=== PATIENT | female | born 1930 | race Caucasian/White ===

== ENCOUNTER 2019-02-13 13:30 | Inpatient (IN) | payer MEDICARE ==
[2019-02-13 13:47] VITALS: BMI 28.8
[2019-02-13] MEDS ORDERED: Loperamide HCl 2 MG CAP PO PRN (16:30)
[2019-02-13] MEDS ORDERED: Ventolin HFA Inhaler 60 PUFF INHALER INH PRN (16:30)
[2019-02-13] MEDS: Acetaminophen/Codeine 30-300mg Tablet PO PRN ×2 (17:24→21:40)
--- NOTE | 2019-02-13 18:14 | HP ---
HISTORY OF PRESENT ILLNESS: Ms. Borja is a very pleasant 88-year-old white female, the patient of Dr. Alvarez, who had a total left knee arthroplasty done. Postoperatively, she did very well, but did some physical therapy and occupational therapy and did not qualify for rehab. She was transferred to [facility] for PT and OT. PAST MEDICAL HISTORY: Significant for: 1. Hypertension. 2. Coronary artery disease. 3. Hypothyroidism. 4. Gastroesophageal reflux. 5. History of lung cancer. 6. Mild aortic stenosis with ejection fraction 60% to 65%. 7. 1/3 diastolic dysfunction. 8. Lumbar stenosis, followed by Dr. Jordan. PAST SURGICAL HISTORY: 1. Bilateral knee surgery, which mainly meniscus surgery. 2. Hammertoe surgery. 3. Right carpal tunnel release. 4. Decompressive laminectomy, fasciotomies, foraminotomies, and microdiskectomy done by Dr. Jordan in 2016. FAMILY HISTORY: Reveals the patient's mom at age 75 with coronary artery disease and Parkinson's. The patient's father in his 70s. He had COPD and prostate cancer. The patient has three sisters, one of lung cancer. The patient has two brothers, one had brain cancer and another had COPD. The patient has three children, one of some type of cancer. PRESENT MEDICATIONS: Reveal she is on the followin. Tylenol with Codeine No. 3 q.4 p.r.n. 2. Amlodipine 5 mg daily. 3. Aspirin 81 mg daily. 4. Edarbi 40 mg every morning. 5. Vitamin D3 2000 units daily. 6. Celexa 20 mg daily. 7. CoQ10, 10 mg daily. 8. Vitamin B12 1000 mcg daily. 9. Bentyl 10 mg p.o. daily p.r.n. 10. [place] 10/325 one q.4 hours p.r.n. severe pain. 11. Levothyroxine 125 mcg daily. 12. Omeprazole 40 mg q.a.m. 13. Imodium 2 mg p.r.n. 14. Livalo 1 mg p.o. q.h.s. 15. Ventolin inhaler two puffs inhaled q.6 hours p.r.n. ALLERGIES: THE PATIENT IS NOTED TO BE ALLERGIC TO TRAMADOL, FLAGYL, ALL MILK PRODUCTS, BACITRACIN, LACTASE, NEOMYCIN, POLYMYXIN B, KEFLEX (CEPHALEXIN MONOHYDRATE). REVIEW OF SYSTEMS: CONSTITUTIONAL: Reveals the patient denies fever, chills, or night sweats. HEENT: The patient denies any change in her hearing or her vision. CARDIAC: The patient denies any chest pain, racing or skipping heartbeats, or slow heartbeats. RESPIRATORY: The patient denies any cough, cold, congestion, or wheezing. GI: The patient denies any abdominal problems including nausea, vomiting, diarrhea, constipation, or hemorrhoids. : The patient denies any dysuria, hematuria, frequency, urgency, or pyuria. BACK: The patient does complain of some back pain, but that has been a long ongoing issues, followed by Dr. Jordan for that problem. She has had back surgery in the past for that. EXTREMITIES: The patient complains of left knee pain, status post her surgery, but is much improved. PHYSICAL EXAMINATION: VITAL SIGNS: Reveal blood pressure elevated on admission at 174/77, pulse 74, respirations 18, O2 saturation 95% on room air, T-max 98 degrees. GENERAL: This is a well-developed, well-nourished, slightly obese, white female, in no apparent distress at this time. HEENT: Reveals normocephalic and nontraumatic cranium. Pupils are equally round and reactive. Extraocular movements are intact. Nose and throat are slightly dry. NECK: Supple without masses, nodes, or bruits. CHEST: Clear to auscultation. No rales, no rhonchi, no wheezes are heard. HEART: Reveals a regular rate and rhythm without murmurs, gallops, or rubs. The patient does have a 1 to 2/6 systolic ejection murmur. ABDOMEN: Soft, nontender without organomegaly. Normal bowel sounds are noted in all 4 quadrants. No rebound or guarding is noted. : Deferred. EXTREMITIES: Reveal no clubbing or cyanosis with slight edema in the left lower extremity. She does have a bandage over her left knee, which does not show a lot of drainage. The knee is not significantly swollen, red, or warm. ASSESSMENT: 1. Status post total left knee arthroplasty. 2. Hypertension. 3. Coronary artery disease. 4. History of chronic obstructive pulmonary disease. 5. Hypothyroidism. 6. Hyperlipidemia. 7. Gastroesophageal reflux disease. 8. Osteoarthritis. 9. Severe lumbar stenosis with radiculopathy, post multiple surgical interventions by Dr. Jordan. 10. History of lung cancer. 11. Aortic stenosis. 12. 1/3 diastolic dysfunction. 13. Generalized weakness. 14. Pain management. PLAN: 1. The patient is admitted to [facility] for physical therapy and occupational therapy. 2. We will continue her present medications. 3. Continue to monitor the patient's blood pressure closely, adjust medications as needed. 4. We will continue to monitor the patient's electrolytes. 5. Pain management is already indicated. 6. Monitor the patient for signs and symptoms of congestive heart failure. 7. Monitor the patient for stress ulcer. 8. Decubitus precautions. 9. DVT prophylaxis. 10. Physical therapy and occupational therapy. Job ID: [id number]
[2019-02-13] MEDS: Aspirin Chewable 81 MG TAB PO SCH (20:24)
[2019-02-13] MEDS: Simvastatin 10 MG TAB PO SCH (20:24)
[2019-02-13] MEDS: Citalopram 20 MG TAB PO SCH (20:24)
[2019-02-13] MEDS ORDERED: Amlodipine 5 MG TAB PO SCH (21:00)
[2019-02-14] MEDS: Acetaminophen/Codeine 30-300mg Tablet PO PRN ×5 (04:21→20:40)
[2019-02-14] MEDS: Levothyroxine Sodium 125 MCG TAB PO SCH (04:23)
[2019-02-14 05:44] LABS: #Basophils 0.1 thou/uL (0.0-0.2); #Eosinphils 0.2 thou/uL (0.0-0.7); #Lymphocytes 2.2 thou/uL (1.20-3.40); #Monocytes 0.6 thou/uL (0.11-0.59); #Neutrophils 6.3 thou/uL (1.40-6.50); %Basophils 1.2 % (0.0-1.0); %Eosinophils 2.3 % (0.0-10.0); %Lymphocytes 23.7 % (21.0-51.0); %Monocytes 5.8 % (0.0-10.0); %Neutrophils 67.1 % (42.0-75.0); Hemoglobin 9.7 g/dL (12.0-16.0); Mean Corpuscular HGB CONC 31.6 g/dL (32.0-36.0); Mean Corpuscular Hemoglobin 31.2 pg (27.0-31.0); Mean Corpuscular Volume 98.6 fL (78.0-98.0); Mean Platelet Volume 6.6 fL (7.4-10.4); Platelet Count 381 thou/uL (130-400); RBC Distribution Width 12.9 % (11.5-14.5); White Blood Cell (WBC) Count 9.4 thou/uL (4.8-10.8)
[2019-02-14 05:55] LABS: ALT (SGPT) 18 U/L (8-55); AST (SGOT) 15 U/L (5-34); Albumin 3.3 g/dL (3.4-4.8); Alkaline Phosphatase 78 U/L (40-150); Anion Gap 13 mmol/L (10-20); BUN (Urea Nitrogen) 11 mg/dL (9.8-20.1); Bilirubin, Total 0.6 mg/dL (0.2-1.2); Calc. Creatinine Clearance 77 mL/min (70-130); Calcium 10.2 mg/dL (7.8-10.44); Carbon Dioxide 29 mmol/L (23-31); Chloride 100 mmol/L (98-107); Estimated GFR-MDRD 86; Globulin 2.4 g/dL (2.4-3.5); Glucose 125 mg/dL (83-110); Potassium 4.9 mmol/L (3.5-5.1); Protein, Total 5.7 g/dL (6.0-8.3); Sodium 137 mmol/L (136-145)
[2019-02-14] MEDS: Losartan 25 MG TAB PO SCH (08:28)
[2019-02-14] MEDS: Ubidecarenone 50 MG CAP PO SCH (08:28)
[2019-02-14] MEDS: Cyanocobalamin (Vitamin B-12) 1,000 MCG TAB PO SCH (08:32)
[2019-02-14 09:06] LABS: Bilirubin Negative (Negative); Blood, Urine Negative (Negative); Clarity Clear (Clear); Glucose, Urine (Dipstick) Negative (Negative); Leukocyte Trace (Negative); Nitrite Negative (Negative); Protein, Urine (Dipstick) Negative (Neg-Trace); Urobilinogen 0.2 mg/dL (Less than 2)
[2019-02-14 09:10] LABS: RBC/HPF None Seen HPF (0-3); WBC/HPF 0-3 HPF (0-3)
[2019-02-14 09:11] LABS: Bacteria/HPF Rare-Few HPF (None Seen); Squamous Epithelial 0-3 HPF (0-3)
--- NOTE | 2019-02-14 10:23 | PRG ---
DATE OF SERVICE: 02/14/2019 SUBJECTIVE: Ms. Borja is a very pleasant 88-year-old white female, who had an elective total left knee arthroplasty done. Postoperatively, she did well, but was very weak and she was transferred here for PT and OT. The patient states she is doing well and ate a good breakfast and walked already this morning with therapy and yesterday evening. She is very pleased with her therapy so far and getting little stronger. She has some pain, but is well controlled. OBJECTIVE: VITAL SIGNS: This morning reveal blood pressure slightly elevated at 184/78, last night was 165/72; pulse 74 to 78; respirations 18 to 20; O2 saturation 94% to 97% on room air; T-max 98.5. GENERAL: This is a well-developed, well-nourished, very pleasant, slightly obese white female, in no apparent distress at this time. HEENT: Normocephalic, nontraumatic cranium. Pupils are equal, round, reactive. Extraocular movements are intact. Nose and throat are slightly dry. NECK: Supple without masses, nodes, or bruits. CHEST: Clear to auscultation. No rales, no rhonchi, no wheezes are heard. HEART: Regular rate and rhythm without gallops or rubs. She does have a 2/6 systolic ejection murmur most likely aortic stenosis. She does have a history of moderate aortic stenosis, ejection fraction 60%, and 1/3 diastolic dysfunction. RESPIRATORY: The patient denies cough, cold, congestion. ABDOMEN: Soft, nontender without organomegaly. Normal bowel sounds are noted in all 4 quadrants. No rebound or guarding is noted. : Deferred. EXTREMITIES: No clubbing or cyanosis. The patient does have a bandage over left knee and does not show any significant drainage. The patient is not red, warm, or hot. ASSESSMENT: 1. Status post total left knee arthroplasty. 2. Hypertension. 3. Coronary artery disease. 4. Chronic obstructive pulmonary disease. 5. Hypothyroidism. 6. Hyperlipidemia. 7. Gastroesophageal reflux disease. 8. Osteoarthritis. 9. Severe lumbar stenosis with radiculopathy, status post multiple surgical interventions in the distant past by Dr. Jordan. 10. History of lung cancer. 11. Aortic stenosis. 12. 1/3 diastolic dysfunction. 13. Generalized weakness. 14. Pain management. PLAN: 1. Continue present medications. 2. Encourage the patient to eat and drink well. 3. Monitor the patient's blood pressure closely and adjust medications as needed. 4. Continue to monitor the patient's electrolytes. 5. Pain management as indicated. 6. Monitor the patient for signs and symptoms of congestive heart failure. 7. Monitor the patient for stress ulcer. 8. Decubitus precautions. 9. DVT prophylaxis. 10. Physical therapy and occupational therapy. The patient's labs from yesterday certainly all acceptable, and a urinalysis was unremarkable. Job ID: [id number]
[2019-02-14] MEDS: Amlodipine 5 MG TAB PO SCH (20:40)
[2019-02-14] MEDS: Aspirin Chewable 81 MG TAB PO SCH (20:40)
[2019-02-14] MEDS: Citalopram 20 MG TAB PO SCH (20:40)
[2019-02-14] MEDS: Simvastatin 10 MG TAB PO SCH (20:40)
[2019-02-15] MEDS: Levothyroxine Sodium 125 MCG TAB PO SCH (03:58)
[2019-02-15] MEDS: Acetaminophen/Codeine 30-300mg Tablet PO PRN ×2 (03:58→20:24)
[2019-02-15] MEDS: Losartan 25 MG TAB PO SCH (08:38)
[2019-02-15] MEDS: Cyanocobalamin (Vitamin B-12) 1,000 MCG TAB PO SCH (08:39)
[2019-02-15] MEDS: Ubidecarenone 50 MG CAP PO SCH (08:39)
[2019-02-15] MEDS: HYDROcodone/Acetaminophen 10/325 mg Tablet PO PRN ×2 (08:42→17:50)
--- NOTE | 2019-02-15 14:47 | PRG ---
DATE OF SERVICE: 02/15/2019 SUBJECTIVE: Ms. Borja is an 88-year-old white female, who had an elective total left knee arthroplasty done by Dr. Alvarez. Postoperatively, she did well. Post week, she was transferred to [facility] for PT and OT. The patient states she is doing well and had a good breakfast and walk this morning. She is very pleased with therapy so far. She walked 180 feet yesterday. She walked 200 feet today with rest. She is still somewhat weakened, but her major problem is getting up out of bed and/or out of a chair. She has no complaints today. OBJECTIVE: VITAL SIGNS: Reveal blood pressure this morning was 131/62, pulse 74 to 78, respirations 20, O2 saturation 96% on room air, and T-max 98.3. GENERAL: On physical exam, this is a well-developed, well-nourished, slightly obese white female, in no apparent distress at this time. HEENT: Reveals normocephalic and nontraumatic cranium. Pupils are equal, round, and reactive. Extraocular movements are intact. Nose and throat are moist. NECK: Supple without masses, nodes, or bruits. CHEST: Clear to auscultation. No rales, rhonchi, wheezes, or cough is heard. HEART: Reveals a regular rate and rhythm without murmurs, gallops, or rubs. Heart also reveals a 2/6 systolic ejection murmur from her aortic stenosis. She does have a history of moderate aortic stenosis, and ejection fraction 60%. She also has a 1/3 diastolic dysfunction. ABDOMEN: Soft and nontender without organomegaly. Normal bowel sounds are noted in all 4 quadrants. No rebound or guarding is noted. : Deferred. EXTREMITIES: Reveal no clubbing, cyanosis, or edema. The patient does have bandage over her left knee, slightly red to the lateral portion, but does not seem very warm or hot. No drainage is noted in the dressing. ASSESSMENT: 1. Status post total left knee arthroplasty by Dr. Alvarez. 2. Hypertension. 3. Coronary artery disease. 4. Chronic obstructive pulmonary disease. 5. Hypothyroidism. 6. Hyperlipidemia. 7. Gastroesophageal reflux disease. 8. Osteoarthritis. 9. Severe lumbar stenosis with radiculopathy, status post multiple surgeries, surgical interventions in the distant past by Dr. Jordan. 10. History of lung cancer. 11. Aortic stenosis. 12. 1/3 diastolic dysfunction. 13. Generalized weakness. 14. Pain management. PLAN: 1. Continue present medications. 2. Continue to encourage the patient to eat and drink well. 3. Monitor the patient's blood pressure closely. 4. We did adjust her amlodipine from 5 mg to 10 mg yesterday. 5. Monitor the patient's electrolytes. 6. Pain management. 7. Monitor the patient for signs and symptoms of congestive heart failure. 8. Monitor the patient for stress ulcer. 9. Decubitus precautions. 10. DVT prophylaxis. 11. PT and OT. Job ID: [id number]
[2019-02-15] MEDS: Aspirin Chewable 81 MG TAB PO SCH (20:23)
[2019-02-15] MEDS: Amlodipine 5 MG TAB PO SCH (20:23)
[2019-02-15] MEDS: Citalopram 20 MG TAB PO SCH (20:24)
[2019-02-15] MEDS: Simvastatin 10 MG TAB PO SCH (20:24)
[2019-02-16] MEDS: Acetaminophen/Codeine 30-300mg Tablet PO PRN ×5 (01:37→20:39)
[2019-02-16] MEDS: Levothyroxine Sodium 125 MCG TAB PO SCH (05:52)
[2019-02-16] MEDS: Losartan 25 MG TAB PO SCH (08:30)
[2019-02-16] MEDS: Cyanocobalamin (Vitamin B-12) 1,000 MCG TAB PO SCH (08:30)
[2019-02-16] MEDS: Ubidecarenone 50 MG CAP PO SCH (08:31)
[2019-02-16] MEDS: Polyethylene Glycol 3350 17 GM Packet PO SCH (08:31)
[2019-02-16] MEDS: Simvastatin 10 MG TAB PO SCH (20:35)
[2019-02-16] MEDS: Citalopram 20 MG TAB PO SCH (20:35)
[2019-02-16] MEDS: Aspirin Chewable 81 MG TAB PO SCH (20:35)
[2019-02-16] MEDS: Amlodipine 5 MG TAB PO SCH (20:36)
[2019-02-16] MEDS: Dicyclomine 20 MG TAB PO PRN (21:25)
[2019-02-17] MEDS: Levothyroxine Sodium 125 MCG TAB PO SCH (05:30)
[2019-02-17] MEDS: Dicyclomine 20 MG TAB PO PRN (07:34)
[2019-02-17] MEDS: Acetaminophen/Codeine 30-300mg Tablet PO PRN ×3 (07:35→20:42)
[2019-02-17] MEDS: Losartan 25 MG TAB PO SCH (09:05)
[2019-02-17] MEDS: Polyethylene Glycol 3350 17 GM Packet PO SCH (09:05)
[2019-02-17] MEDS: Ubidecarenone 50 MG CAP PO SCH (09:05)
[2019-02-17] MEDS: Cyanocobalamin (Vitamin B-12) 1,000 MCG TAB PO SCH (09:05)
[2019-02-17] MEDS: Amlodipine 5 MG TAB PO SCH (20:39)
[2019-02-17] MEDS: Citalopram 20 MG TAB PO SCH (20:40)
[2019-02-17] MEDS: Simvastatin 10 MG TAB PO SCH (20:40)
[2019-02-17] MEDS: Aspirin Chewable 81 MG TAB PO SCH (20:40)
--- NOTE | 2019-02-17 21:36 | PRG ---
DATE OF SERVICE: 02/16/2019 SUBJECTIVE: The patient feels well, lying in the bed, has been walking with the nurses. She is having decreasing pain in her knee except when therapy is done. OBJECTIVE: VITAL SIGNS: Shows her pulse 83, blood pressure 157/67, O2 sats 95% on room air, respirations 18. EXTREMITIES: Left knee is bandaged. No redness, erythema, or drainage. ABDOMEN: Soft and nontender. CARDIAC: Shows an irregularly irregular rhythm. ASSESSMENT: 1. Resolving left total knee replacement. 2. Hypertension, controlled to goal. 3. Coronary disease, asymptomatic. 4. Chronic obstructive pulmonary disease, stable. 5. Aortic stenosis, stable. 6. Hypothyroidism stable. 7. Lumbar stenosis with radiculopathy, not limiting therapy. PLAN: 1. Continue PT/OT. 2. Continue pain relief. 3. Continue DVT and stress ulcer prophylaxis. 4. Continue to monitor for decompensation of congestive heart failure. 5. Continue to monitor for signs of aortic stenosis with chest pain, syncope, or shortness of breath. Job ID: [id number]
--- NOTE | 2019-02-17 21:44 | PRG ---
DATE OF SERVICE: 02/17/2019 SUBJECTIVE: The patient feels better today. Has been walking in the porter with nurses and states their walking is much better for her than doing the PT. She has had no shortness of breath or chest pain. Has been eating well with no nausea. OBJECTIVE: VITAL SIGNS: Show blood pressure 186/74, temperature is 98, pulse 77, respirations 20, O2 sats 95% on room air. LUNGS: Clear. CARDIAC: Shows irregularly regular rhythm. ABDOMEN: Soft and nontender with no masses or organomegaly. SKIN/EXTREMITIES: Display no edema, clubbing, or cyanosis. There is bandage in the left knee, appears to be healing with no erythema or warmth or drainage. NEUROLOGIC: Intact. ASSESSMENT: 1. Resolving left total knee replacement. 2. Stable aortic stenosis. 3. Hypertension, slightly elevated secondary to pain. We will monitor. May need to adjust medications. 4. Coronary artery disease, asymptomatic. 5. Lumbar stenosis with radiculopathy, possibly limiting therapy. PLAN: 1. Continue PT/OT. 2. Continue pain relief. 3. Continue DVT and stress ulcer prophylaxis. 4. Continue to monitor for signs of congestive heart failure. 5. Continue to monitor blood pressure. Her amlodipine just recently been increased to 10 mg, but may need to increase losartan to 100 daily and we will do this today. Job ID: [id number]
[2019-02-18] MEDS: Levothyroxine Sodium 125 MCG TAB PO SCH (05:36)
[2019-02-18] MEDS: Acetaminophen/Codeine 30-300mg Tablet PO PRN ×3 (09:38→18:05)
[2019-02-18] MEDS: Ubidecarenone 50 MG CAP PO SCH (09:38)
[2019-02-18] MEDS: Cyanocobalamin (Vitamin B-12) 1,000 MCG TAB PO SCH (09:38)
[2019-02-18] MEDS: Losartan 25 MG TAB PO SCH (09:40)
[2019-02-18] MEDS: Polyethylene Glycol 3350 17 GM Packet PO SCH (09:42)
[2019-02-18] MEDS: Simvastatin 10 MG TAB PO SCH (21:36)
[2019-02-18] MEDS: Citalopram 20 MG TAB PO SCH (21:36)
[2019-02-18] MEDS: Aspirin Chewable 81 MG TAB PO SCH (21:36)
[2019-02-18] MEDS: Amlodipine 5 MG TAB PO SCH (21:36)
--- NOTE | 2019-02-18 22:03 | PRG ---
DATE OF SERVICE: 02/18/2019 SUBJECTIVE: Ms. Borja is a very pleasant 88-year-old white female ended up with elective total left knee arthroplasty done by Dr. Alvarez. Postoperatively, she did well but was very weak. She was transferred to [facility] for physical therapy and occupational therapy. The patient states she had a good weekend and was able to walk with the nurses. She is far too doing much stronger since states she wants to go home. I think she is able to care for herself little better. The patient walked 200 feet last week and hopefully, she will walk as much as long. OBJECTIVE: VITAL SIGNS: This morning reveal blood pressure 136/65, pulse 72 to 79, respirations 18, O2 saturation 95% to 97% on room air, and T-max 98.2. GENERAL: This is a well-developed, well-nourished, very pleasant, 88-year-old white female, in no apparent distress at this time. HEENT: Reveals normocephalic and nontraumatic cranium. Pupils are equal, round , and reactive. Extraocular movements are intact. Nose and throat are dry. NECK: Supple without masses, nodes, or bruits. CHEST: Clear to auscultation. No rales, no rhonchi, no wheezes. No cough is heard. HEART: Reveals a regular rate and rhythm. No gallops or rubs are noted. Heart reveals a 2/6 systolic ejection murmur from her aortic stenosis. She does have a history of mild to moderate aortic stenosis. Ejection fraction noted to be 60%. She had a 1/3 diastolic dysfunction noted. ABDOMEN: Soft, nontender without organomegaly. Normal bowel sounds are noted. No rebound or guarding is noted. GENITOURINARY: Deferred. EXTREMITIES: Reveal no clubbing, cyanosis, or edema. The patient does have a bandage over her left knee still. Does not seem warm or draining. ASSESSMENT: 1. Status post total left knee arthroplasty done by Dr. Alvarez. 2. Hypertension. 3. Coronary artery disease. 4. Chronic obstructive pulmonary disease. 5. Hypothyroidism. 6. Hyperlipidemia. 7. Gastroesophageal reflux disease. 8. Osteoarthritis. 9. Severe lumbar stenosis with radiculopathy. 10. Status post multiple surgeries. 11. History of lung cancer. 12. Aortic stenosis. 13. 1/3 diastolic dysfunction. 14. Generalized weakness. 15. Pain management. PLAN: 1. Continue present medications. 2. Encourage the patient to eat well. 3. Continue to monitor the patient's blood pressure closely. 4. The patient's blood pressure medicine, amlodipine is increased from 5 mg to 10 mg. 5. The patient's BP will be monitored to see if this brings it to normal.. 6. Continue to follow the patient's electrolytes. 7. Pain management. 8. Monitor the patient for signs and symptoms of congestive heart failure. 9. Monitor the patient for stress ulcer. 10. Decubitus precautions. 11. DVT prophylaxis. 12. Physical therapy and occupational therapy. Job ID: [id number] [facility]
[2019-02-19] MEDS: Acetaminophen/Codeine 30-300mg Tablet PO PRN ×4 (00:03→20:40)
[2019-02-19] MEDS: Levothyroxine Sodium 125 MCG TAB PO SCH (05:09)
[2019-02-19] MEDS: Cyanocobalamin (Vitamin B-12) 1,000 MCG TAB PO SCH (08:57)
[2019-02-19] MEDS: Ubidecarenone 50 MG CAP PO SCH (08:57)
[2019-02-19] MEDS: Losartan 25 MG TAB PO SCH (08:58)
[2019-02-19] MEDS: Polyethylene Glycol 3350 17 GM Packet PO SCH (09:00)
[2019-02-19] MEDS: Citalopram 20 MG TAB PO SCH (20:40)
[2019-02-19] MEDS: Simvastatin 10 MG TAB PO SCH (20:40)
[2019-02-19] MEDS: Amlodipine 5 MG TAB PO SCH (20:40)
[2019-02-19] MEDS: Aspirin Chewable 81 MG TAB PO SCH (20:40)
--- NOTE | 2019-02-19 20:48 | PRG ---
DATE OF SERVICE: 02/19/2019 SUBJECTIVE: Ms. Borja is a very pleasant 88-year-old white female, who had an elective total knee arthroplasty done by Dr. Alvarez. Postoperatively, she tolerated the procedure very well, but was very weak. [place] [facility] [place]. The patient states she has had a great day today, walked 500 feet this morning and 700 feet this afternoon. She states her knees are much improved. She still has a little balance problem and needs a little more time, but she is doing much better. We suggest that she will be discharged on Monday and she is aware of that. She will try to get her daughter to come pick her up on Monday. OBJECTIVE: VITAL SIGNS: Today reveal blood pressure 152/69, pulse 79 to 83, respirations 18, O2 saturation 95% to 96% on room air, T-max 98.6. GENERAL: This is a well-developed, well-nourished, slightly obese, white female, in no apparent distress at this time. HEENT: Reveals normocephalic, nontraumatic cranium. Pupils are equal, round, reactive. Extraocular movements are intact. Nose and throat are slightly dry. NECK: Supple without masses, nodes, or bruits. CHEST: Clear to auscultation. No rales, rhonchi, wheezes, or cough is heard. HEART: Reveals a regular rate and rhythm. The patient does have a 2/6 systolic ejection murmur from aortic stenosis. She has a history of moderate aortic stenosis, ejection fraction 60%. She has 1/3 diastolic dysfunction noted. ABDOMEN: Soft, nontender, slightly obese. Normal bowel sounds are noted. No rebound or guarding is noted. : Deferred. EXTREMITIES: Reveal no clubbing, cyanosis, or edema. Left knee has no drainage. ASSESSMENT: 1. Status post total left knee arthroplasty done by Dr. Alvarez. 2. Hypertension. 3. Coronary artery disease. 4. Chronic obstructive pulmonary disease. 5. Hypothyroidism. 6. Hyperlipidemia. 7. Gastroesophageal reflux disease. 8. Osteoarthritis. 9. Severe lumbar stenosis with radiculopathy. 10. Status post multiple surgeries. 11. History of lung cancer. 12. Aortic stenosis. 13. 1/3 diastolic dysfunction. 14. Pain management. 15. Generalized weakness. PLAN: 1. Continue present medications. 2. Continue to monitor the patient's blood pressure closely. 3. The patient is on amlodipine 10 mg. 4. Continue to follow the patient's electrolytes. 5. Pain management. 6. Monitor the patient for signs and symptoms of CHF. 7. Monitor the patient for stress ulcer. 8. Decubitus precautions. 9. DVT prophylaxis. 10. Physical therapy and occupational therapy. Job ID: [id number]
[2019-02-20] MEDS: Levothyroxine Sodium 125 MCG TAB PO SCH (05:50)
[2019-02-20] MEDS: Losartan 25 MG TAB PO SCH (08:24)
[2019-02-20] MEDS: Cyanocobalamin (Vitamin B-12) 1,000 MCG TAB PO SCH (08:24)
[2019-02-20] MEDS: Ubidecarenone 50 MG CAP PO SCH (08:25)
[2019-02-20] MEDS: Polyethylene Glycol 3350 17 GM Packet PO SCH ×2 (08:25→08:35)
[2019-02-20] MEDS: Acetaminophen/Codeine 30-300mg Tablet PO PRN ×3 (08:26→20:41)
--- NOTE | 2019-02-20 13:53 | PRG ---
DATE OF SERVICE: 02/20/2019 SUBJECTIVE: Ms. Borja is a pleasant 88-year-old white female. She had a total elective knee arthroplasty done by Dr. Alvarez on the right side. Postoperatively, she tolerated the procedure well, had no significant bleeding or infection, but was very weak. She was transferred to [facility] for PT and OT to increase her strength and stamina. The patient states she had a great day. She is so glad that she is doing so well. She anticipates going home on Monday when her daughter will pick her up. OBJECTIVE: VITAL SIGNS: Today reveal blood pressure 154/70, pulse 74 to 83, respirations 18, T-max 98.1, O2 saturation 94% to 95% on room air. GENERAL: This is a well-developed, well-nourished, slightly obese white female, in no apparent distress at this time. HEENT: Normocephalic and nontraumatic cranium. Pupils are equal, round, and reactive. Extraocular movements are intact. Nose and throat are moist today. NECK: Supple without masses, nodes, or bruits. CHEST: Clear to auscultation. No rales, no rhonchi. No wheezes or cough is heard. HEART: Reveals a regular rate and rhythm without gallops or rubs. The patient does have a 2/6 systolic ejection murmur most likely from aortic stenosis. She also has a history of moderate aortic stenosis, ejection fraction 60%. She has 1/3 diastolic dysfunction and is stable. ABDOMEN: Soft, nontender without organomegaly. Normal bowel sounds are noted in all 4 quadrants. GENITOURINARY: Deferred. EXTREMITIES: Reveal no clubbing or cyanosis. The patient has minimal edema in her left leg. ASSESSMENT: 1. Status post total left knee arthroplasty done by Dr. Alvarez. 2. Hypertension. 3. Coronary artery disease. 4. Chronic obstructive pulmonary disease. 5. Hypothyroidism. 6. Hyperlipidemia. 7. Gastroesophageal reflux disease. 8. Osteoarthritis. 9. Severe lumbar stenosis with radiculopathy. 10. Status post multiple surgeries. 11. History of lung cancer. 12. Aortic stenosis. 13. 1/3 diastolic dysfunction. 14. Pain management. 15. Generalized weakness. PLAN: 1. Continue present medications. 2. Continue to monitor the patient's blood pressure closely. 3. Continue the patient on . 4. Continue to follow the patient's electrolytes. 5. Pain management. 6. Monitor the patient for signs and symptoms of CHF. 7. Monitor the patient for stress ulcer. 8. Decubitus precautions. 9. DVT prophylaxis. 10. Physical therapy and occupational therapy. Job ID: [id number]
[2019-02-20] MEDS: Amlodipine 5 MG TAB PO SCH (20:40)
[2019-02-20] MEDS: Aspirin Chewable 81 MG TAB PO SCH (20:41)
[2019-02-20] MEDS: Citalopram 20 MG TAB PO SCH (20:41)
[2019-02-20] MEDS: Simvastatin 10 MG TAB PO SCH (20:41)
[2019-02-21] MEDS: Levothyroxine Sodium 125 MCG TAB PO SCH (05:38)
[2019-02-21 05:49] LABS: #Basophils 0.1 thou/uL (0.0-0.2); #Eosinphils 0.2 thou/uL (0.0-0.7); #Lymphocytes 2.2 thou/uL (1.20-3.40); #Monocytes 0.5 thou/uL (0.11-0.59); #Neutrophils 5.1 thou/uL (1.40-6.50); %Basophils 1.1 % (0.0-1.0); %Eosinophils 2.2 % (0.0-10.0); %Lymphocytes 26.9 % (21.0-51.0); %Monocytes 6.6 % (0.0-10.0); %Neutrophils 63.2 % (42.0-75.0); Hemoglobin 10.6 g/dL (12.0-16.0); Mean Corpuscular HGB CONC 31.2 g/dL (32.0-36.0); Mean Corpuscular Hemoglobin 30.9 pg (27.0-31.0); Mean Corpuscular Volume 99.1 fL (78.0-98.0); Mean Platelet Volume 6.9 fL (7.4-10.4); Platelet Count 430 thou/uL (130-400); RBC Distribution Width 13.3 % (11.5-14.5); Red Blood Cell (RBC) Count 3.42 mill/uL (4.20-5.40)
[2019-02-21 06:11] LABS: AST (SGOT) 12 U/L (5-34); Albumin 3.7 g/dL (3.4-4.8); Alkaline Phosphatase 78 U/L (40-150); Anion Gap 15 mmol/L (10-20); BUN (Urea Nitrogen) 17 mg/dL (9.8-20.1); Bilirubin, Total 0.4 mg/dL (0.2-1.2); Calc. Creatinine Clearance 68 mL/min (70-130); Calcium 10.4 mg/dL (7.8-10.44); Carbon Dioxide 27 mmol/L (23-31); Chloride 102 mmol/L (98-107); Estimated GFR-MDRD 75; Globulin 2.6 g/dL (2.4-3.5); Glucose 110 mg/dL (83-110); Potassium 4.6 mmol/L (3.5-5.1); Protein, Total 6.3 g/dL (6.0-8.3); Sodium 139 mmol/L (136-145)
[2019-02-21 06:19] LABS: ALT (SGPT) 8 U/L (8-55)
[2019-02-21] MEDS: Cyanocobalamin (Vitamin B-12) 1,000 MCG TAB PO SCH (08:49)
[2019-02-21] MEDS: Losartan Potassium 50 MG TAB PO SCH (08:49)
[2019-02-21] MEDS: Ubidecarenone 50 MG CAP PO SCH (08:50)
[2019-02-21] MEDS: Acetaminophen/Codeine 30-300mg Tablet PO PRN (08:50)
[2019-02-21] MEDS: Polyethylene Glycol 3350 17 GM Packet PO SCH (08:50)
--- NOTE | 2019-02-21 09:51 | PRG ---
DATE OF SERVICE: 02/21/2019 SUBJECTIVE: Ms. Borja is a very pleasant 88-year-old white female, who had an elective total right knee arthroplasty done by Dr. Alvarez. Postoperatively, she did very well, but was very weak. She was transferred to [facility] for PT and OT. She is here to increase her strength and stamina. The patient states she is doing well and is to be discharged tomorrow. She has no problems and we were trying to transfer her off the Tylenol No. 3 to regular Tylenol and/or Aleve. Her daughter will pick her up tomorrow. OBJECTIVE: VITAL SIGNS: Reveal blood pressure 131/65, pulse 73 to 74, respirations 18 to 20, O2 saturation 94% to 96% on room air, T-max 98.3. GENERAL: On physical exam, this is a well-developed, well-nourished, very pleasant 88-year-old white female, in no apparent distress at this time. HEENT: Normocephalic and nontraumatic cranium. Pupils equal, round, and reactive. Extraocular movements are intact. Nose and throat are slightly dry. NECK: Supple without masses, nodes, or bruits. CHEST: Clear to auscultation. No rales, rhonchi, wheezes, or cough is noted. HEART: Reveals a regular rate and rhythm without murmurs, gallops, or rubs. ABDOMEN: Soft and nontender without organomegaly. Normal bowel sounds are noted. No rebound or guarding is noted. : Deferred. EXTREMITIES: Reveal no clubbing, cyanosis, or edema. ASSESSMENT: 1. Status post total left knee arthroplasty done by Dr. Alvarez. 2. Hypertension. 3. Coronary artery disease. 4. Chronic obstructive pulmonary disease. 5. Hypothyroidism. 6. Hyperlipidemia. 7. Gastroesophageal reflux disease. 8. Osteoarthritis. 9. Severe lumbar stenosis with radiculopathy. 10. Status post multiple surgeries. 11. History of lung cancer. 12. Aortic stenosis. 13. 1/3 diastolic dysfunction. 14. Pain management. 15. Generalized weakness. PLAN: 1. Continue present medication. 2. Continue to monitor the patient's blood pressure closely. 3. Continue to monitor the patient's electrolytes. 4. The patient's labs this morning were all excellent. 5. Pain management. 6. Try to transfer the patient from Tylenol No. 3 to regular Tylenol 1000 mg t.i.d. 7. Monitor the patient for signs and symptoms of CHF. 8. Monitor the patient for stress ulcer. 9. Decubitus precautions. 10. DVT prophylaxis. 11. Physical therapy and occupational therapy. Job ID: [id number]
[2019-02-21] MEDS: Acetaminophen 500 MG TAB PO SCH ×2 (14:01→21:09)
[2019-02-21] MEDS: Amlodipine 5 MG TAB PO SCH (21:10)
[2019-02-21] MEDS: Aspirin Chewable 81 MG TAB PO SCH (21:10)
[2019-02-21] MEDS: Citalopram 20 MG TAB PO SCH (21:10)
[2019-02-21] MEDS: Simvastatin 10 MG TAB PO SCH (21:10)
[2019-02-22] MEDS: Levothyroxine Sodium 125 MCG TAB PO SCH (05:42)
[2019-02-22] MEDS: Polyethylene Glycol 3350 17 GM Packet PO SCH (09:06)
[2019-02-22] MEDS: Ubidecarenone 50 MG CAP PO SCH (09:06)
[2019-02-22] MEDS: Losartan Potassium 50 MG TAB PO SCH (09:06)
[2019-02-22] MEDS: Acetaminophen 500 MG TAB PO SCH (09:06)
[2019-02-22] MEDS: Cyanocobalamin (Vitamin B-12) 1,000 MCG TAB PO SCH (09:06)
--- NOTE | 2019-02-22 10:18 | DIS ---
DATE OF ADMISSION: 02/13/2019 DATE OF DISCHARGE: 02/22/2019 HISTORY OF PRESENT ILLNESS: Ms. Borja is a very pleasant 88-year-old white female who had a total left knee arthroplasty done by Dr. Alvarez. Postoperatively, she did well, but was very weak. She needed further rehab and was transferred to [facility] for physical therapy and occupational therapy. SUBJECTIVE: The patient states she is doing very well and walking much more and with much less pain than she thought she could. She is off all of her pain medicines at this time. She is using Tylenol 1000 mg up to 3 times a day for pain. OBJECTIVE: VITAL SIGNS: Reveal the patient's blood pressure fluctuates between 130s to 160s systolic and between the 60s and 70s diastolic. Her pulse usually runs in the 70s, respirations 18 to 20s, O2 sats 95% to 96% on room air, and T-max is in 98. GENERAL: This is a well-developed, well-nourished, very pleasant white female, has done extremely well while she has been here in physical therapy. HEENT: Normocephalic and nontraumatic cranium. The pupils are equally round and reactive. The extraocular movements are intact. Nose and throat are slightly dry, but clear. NECK: Supple without masses, nodes, or bruits. CHEST: Clear to auscultation. No rales, no rhonchi, no wheezes, and no cough is noted. HEART: Reveals a regular rate and rhythm. The patient does have a 2/6 systolic ejection murmur. ABDOMEN: Soft, slightly obese, and nontender. Normal bowel sounds are noted in all 4 quadrants. No rebound or guarding is noted. : Deferred. EXTREMITIES: Reveal no clubbing, cyanosis, or edema. The patient does have bandage over left knee, which does not show much drainage at all. The knee is not swollen, is not red, is not warm. NEUROLOGIC: The patient is oriented to person, place, and time. ASSESSMENT: 1. Status post total left knee arthroplasty by Dr. Alvarez. 2. Hypertension. 3. Coronary artery disease. 4. Chronic obstructive pulmonary disease. 5. Hypothyroidism. 6. Hyperlipidemia. 7. Gastroesophageal reflux disease. 8. Osteoarthritis. 9. History of severe lumbar stenosis with radiculopathy and multiple surgical interventions by Dr. Jordan. 10. History of lung cancer. 11. Aortic stenosis. 12. 1/3 diastolic dysfunction. 13. Pain management. 14. Generalized weakness. DISCHARGE MEDICATIONS: For this patient include the following; 1. Tylenol 1000 mg t.i.d. p.r.n. 2. Albuterol or Ventolin inhaler 2 puffs q.6 p.r.n. 3. Norvasc 10 mg a day. 4. Aspirin 81 mg a day. 5. Vitamin D3, 2000 units a day. 6. Citalopram 20 mg a day. 7. CoQ10, 100 mg daily. 8. Vitamin B12, 1000 mg p.o. daily. 9. Bentyl 10 mg p.r.n. abdominal cramps. 10. Levothyroxine 125 mcg daily. 11. Imodium p.r.n. 12. Losartan 200 mg daily. 13. Protonix 40 mg every day. 14. MiraLAX 17 g daily p.r.n. 15. Simvastatin 10 mg at bedtime. PLAN: 1. The patient is discharged to home from [facility] on February 22, after 2 o'clock. 2. Continue present medications. 3. Continue to monitor the patient's blood pressure at home. 4. The patient will have physical therapy coming by her house twice a week. 5. Pain management with Tylenol. 6. The patient is monitored for signs and symptoms of congestive heart failure. 7. Monitor the patient for stress ulcer. 8. Decubitus precautions. 9. Follow up with the patient's PCP within 1 or 2 weeks. Job ID: [id number]
[2019-02-22 12:19] VITALS: BP 132/63; TEMP 97.6
== END 2019-02-22 13:42 | disposition home health service (06) | DRG 561 ==
LOC: NAV ACUTE 13:30
PROVIDERS: ADMIT Family Medicine; ATTEND Family Medicine
DX: Z47.1 Aftercare following joint replacement surgery (principal); I10 Essential (primary) hypertension; I25.10 Atherosclerotic heart disease of native coronary artery without angina pectoris; E03.9 Hypothyroidism, unspecified; K21.9 Gastro-esophageal reflux disease without esophagitis; I35.0 Nonrheumatic aortic (valve) stenosis; M48.061 Spinal stenosis, lumbar region without neurogenic claudication; J44.9 Chronic obstructive pulmonary disease, unspecified; E78.5 Hyperlipidemia, unspecified; M54.16 Radiculopathy, lumbar region; Z85.118 Personal history of other malignant neoplasm of bronchus and lung; Z98.890 Other specified postprocedural states; Z79.82 Long term (current) use of aspirin; Z88.1 Allergy status to other antibiotic agents; Z88.8 Allergy status to other drugs, medicaments and biological substances
CPT/HCPCS: 36415; 80053; 81001; 85025

== ENCOUNTER 2021-05-04 15:07 | Inpatient (IN) | payer MEDICARE ==
[2021-05-04] MEDS ORDERED: guaiFENesin ER 600 MG TAB PO PRN (18:05)
[2021-05-04] MEDS ORDERED: Cepastat Lozenges 1 LOZ PO PRN (18:09)
[2021-05-04] MEDS ORDERED: Loperamide HCl 2 MG CAP PO PRN ×2 (18:09)
[2021-05-04] MEDS ORDERED: cloNIDine 0.1 MG TAB PO PRN (18:09)
[2021-05-04] MEDS ORDERED: Bisacodyl 10 MG SUPP PR PRN (18:09)
[2021-05-04] MEDS ORDERED: Artificial Tear Sol 15 ML BOT EA EYE PRN (18:09)
[2021-05-04] MEDS ORDERED: Sodium Chloride 0.65% Nasal 44 ML BOT EA NARE PRN (18:09)
[2021-05-04] MEDS ORDERED: Calcium Carbonate 500 MG ChewTAB PO PRN (18:09)
[2021-05-04] MEDS ORDERED: Eucerin (Mineral Oil/Petrolatum,White) 30 gm Jar TOP PRN (18:09)
[2021-05-04] MEDS ORDERED: Loratadine 10 MG TAB PO PRN (18:42)
[2021-05-04] MEDS ORDERED: OLANZapine 5 MG TAB PO PRN (20:14)
[2021-05-04] MEDS: Citalopram 20 MG TAB PO SCH (20:24)
[2021-05-04] MEDS: Aspirin 81 mg Enteric Coated Tablet PO SCH (20:24)
[2021-05-04] MEDS: Ascorbic Acid 500 mg Chewable Tablet PO SCH (20:24)
[2021-05-04] MEDS: Ferrous Sulfate 325 MG TAB PO SCH (20:24)
[2021-05-04] MEDS: Amlodipine 5 MG TAB PO SCH (20:24)
[2021-05-04] MEDS: Acetaminophen 500 MG TAB PO PRN (20:25)
[2021-05-04] MEDS: Mometasone/Formoterol 200/5 60 PUFF INH SCH (20:26)
[2021-05-05] MEDS: Levothyroxine Sodium 125 MCG TAB PO SCH (05:08)
[2021-05-05 06:36] LABS: #Basophils 0.1 thou/uL (0.0-0.2); #Eosinphils 0.2 thou/uL (0.0-0.7); #Lymphocytes 1.1 thou/uL (1.20-3.40); #Monocytes 0.8 thou/uL (0.11-0.59); #Neutrophils 7.2 thou/uL (1.40-6.50); %Basophils 0.9 % (0.0-1.0); %Eosinophils 2.5 % (0.0-10.0); %Lymphocytes 11.2 % (21.0-51.0); %Monocytes 8.3 % (0.0-10.0); %Neutrophils 77.1 % (42.0-75.0); Mean Corpuscular Hemoglobin 32.5 pg (27.0-31.0); Mean Corpuscular Volume 98.5 fL (78.0-98.0); Mean Platelet Volume 11.2 fL (7.4-10.4); Platelet Count 188 thou/uL (130-400); RBC Distribution Width 11.8 % (11.5-14.5); Red Blood Cell (RBC) Count 2.45 mill/uL (4.20-5.40); White Blood Cell (WBC) Count 9.3 thou/uL (4.8-10.8)
[2021-05-05 06:55] LABS: Anion Gap 13 mmol/L (10-20); BUN (Urea Nitrogen) 16 mg/dL (9.8-20.1); Calc. Creatinine Clearance 84 mL/min (70-130); Carbon Dioxide 26 mmol/L (23-31); Chloride 97 mmol/L (98-107); Glucose 107 mg/dL (83-110); Potassium 4.2 mmol/L (3.5-5.1); Sodium 132 mmol/L (136-145)
[2021-05-05] MEDS: Mometasone/Formoterol 200/5 60 PUFF INH SCH ×2 (08:31→20:41)
[2021-05-05] MEDS: Gabapentin 100 MG CAP PO SCH (08:32)
[2021-05-05] MEDS: Cholecalciferol 1,000 UNITS (25 MCG) TAB PO SCH (08:32)
[2021-05-05] MEDS: Aspirin 81 mg Enteric Coated Tablet PO SCH ×2 (08:32→20:41)
[2021-05-05] MEDS: Cyanocobalamin (Vitamin B-12) 1,000 MCG TAB PO SCH (08:32)
[2021-05-05] MEDS: Ferrous Sulfate 325 MG TAB PO SCH ×2 (08:32→20:40)
[2021-05-05] MEDS: Ascorbic Acid 500 mg Chewable Tablet PO SCH ×2 (08:32→20:41)
[2021-05-05] MEDS: Losartan Potassium 50 MG TAB PO SCH (08:33)
[2021-05-05] MEDS: Dicyclomine 10 MG CAP PO SCH (08:33)
[2021-05-05] MEDS ORDERED: Non-Formulary Item 1 EACH (Azilsartan Medoxomil [Edarbi] 80 MG Tablet) PO SCH (09:00)
[2021-05-05] MEDS: HYDROcodone/Acetaminophen 5/325 mg Tablet PO PRN (11:15)
[2021-05-05] MEDS: Amlodipine 5 MG TAB PO SCH (20:40)
[2021-05-05] MEDS: Citalopram 20 MG TAB PO SCH (20:41)
[2021-05-06] MEDS: Acetaminophen 500 MG TAB PO PRN ×3 (02:57→19:42)
[2021-05-06] MEDS: Levothyroxine Sodium 125 MCG TAB PO SCH (05:57)
[2021-05-06] MEDS: Mometasone/Formoterol 200/5 60 PUFF INH SCH ×2 (09:14→21:37)
[2021-05-06] MEDS: Aspirin 81 mg Enteric Coated Tablet PO SCH ×2 (09:14→21:37)
[2021-05-06] MEDS: Gabapentin 100 MG CAP PO SCH (09:14)
[2021-05-06] MEDS: Cholecalciferol 1,000 UNITS (25 MCG) TAB PO SCH (09:14)
[2021-05-06] MEDS: Ferrous Sulfate 325 MG TAB PO SCH ×2 (09:15→21:38)
[2021-05-06] MEDS: Losartan Potassium 50 MG TAB PO SCH (09:15)
[2021-05-06] MEDS: Ascorbic Acid 500 mg Chewable Tablet PO SCH ×2 (09:15→21:37)
[2021-05-06] MEDS: Dicyclomine 10 MG CAP PO SCH (09:15)
[2021-05-06] MEDS: Cyanocobalamin (Vitamin B-12) 1,000 MCG TAB PO SCH (09:15)
[2021-05-06] MEDS: HYDROcodone/Acetaminophen 5/325 mg Tablet PO PRN (12:27)
[2021-05-06] MEDS: Amlodipine 5 MG TAB PO SCH (21:38)
[2021-05-06] MEDS: Citalopram 20 MG TAB PO SCH (21:38)
[2021-05-07] MEDS: Levothyroxine Sodium 125 MCG TAB PO SCH (05:52)
[2021-05-07] MEDS: Ascorbic Acid 500 mg Chewable Tablet PO SCH ×2 (09:17→20:43)
[2021-05-07] MEDS: Losartan Potassium 50 MG TAB PO SCH (09:17)
[2021-05-07] MEDS: Aspirin 81 mg Enteric Coated Tablet PO SCH ×2 (09:17→20:44)
[2021-05-07] MEDS: Gabapentin 100 MG CAP PO SCH (09:17)
[2021-05-07] MEDS: Cholecalciferol 1,000 UNITS (25 MCG) TAB PO SCH (09:17)
[2021-05-07] MEDS: Ferrous Sulfate 325 MG TAB PO SCH ×2 (09:17→20:44)
[2021-05-07] MEDS: Cyanocobalamin (Vitamin B-12) 1,000 MCG TAB PO SCH (09:17)
[2021-05-07] MEDS: Mometasone/Formoterol 200/5 60 PUFF INH SCH ×2 (09:18→20:43)
[2021-05-07] MEDS: Dicyclomine 10 MG CAP PO SCH (09:18)
[2021-05-07] MEDS: Acetaminophen 500 MG TAB PO PRN (13:11)
[2021-05-07] MEDS: Amlodipine 5 MG TAB PO SCH (20:43)
[2021-05-07] MEDS: Citalopram 20 MG TAB PO SCH (20:44)
[2021-05-08] MEDS: Levothyroxine Sodium 125 MCG TAB PO SCH (06:20)
[2021-05-08] MEDS: Mometasone/Formoterol 200/5 60 PUFF INH SCH ×2 (08:48→21:05)
[2021-05-08] MEDS: Aspirin 81 mg Enteric Coated Tablet PO SCH ×2 (08:48→21:06)
[2021-05-08] MEDS: Cholecalciferol 1,000 UNITS (25 MCG) TAB PO SCH (08:48)
[2021-05-08] MEDS: Losartan Potassium 50 MG TAB PO SCH (08:49)
[2021-05-08] MEDS: Ascorbic Acid 500 mg Chewable Tablet PO SCH ×2 (08:49→21:06)
[2021-05-08] MEDS: Ferrous Sulfate 325 MG TAB PO SCH ×2 (08:49→21:07)
[2021-05-08] MEDS: Cyanocobalamin (Vitamin B-12) 1,000 MCG TAB PO SCH (08:49)
[2021-05-08] MEDS: Gabapentin 100 MG CAP PO SCH (08:49)
[2021-05-08] MEDS: Dicyclomine 10 MG CAP PO SCH (08:50)
[2021-05-08] MEDS: Amlodipine 5 MG TAB PO SCH (21:06)
[2021-05-08] MEDS: Citalopram 20 MG TAB PO SCH (21:07)
[2021-05-09] MEDS: Levothyroxine Sodium 125 MCG TAB PO SCH (05:34)
[2021-05-09 05:44] LABS: #Basophils 0.2 thou/uL (0.0-0.2); #Eosinphils 0.4 thou/uL (0.0-0.7); #Lymphocytes 2.9 thou/uL (1.20-3.40); #Monocytes 0.8 thou/uL (0.11-0.59); #Neutrophils 7.8 thou/uL (1.40-6.50); %Basophils 1.4 % (0.0-1.0); %Eosinophils 3.1 % (0.0-10.0); %Lymphocytes 24.2 % (21.0-51.0); %Monocytes 6.5 % (0.0-10.0); %Neutrophils 64.8 % (42.0-75.0); Hemoglobin 7.9 g/dL (12.0-16.0); Mean Corpuscular HGB CONC 31.3 g/dL (32.0-36.0); Mean Corpuscular Hemoglobin 32.2 pg (27.0-31.0); Mean Platelet Volume 7.6 fL (7.4-10.4); Platelet Count 390 thou/uL (130-400); RBC Distribution Width 13.6 % (11.5-14.5); Red Blood Cell (RBC) Count 2.46 mill/uL (4.20-5.40)
[2021-05-09 05:50] LABS: Anion Gap 13 mmol/L (10-20); BUN (Urea Nitrogen) 14 mg/dL (9.8-20.1); Calc. Creatinine Clearance 84 mL/min (70-130); Calcium 9.6 mg/dL (7.8-10.44); Carbon Dioxide 28 mmol/L (23-31); Chloride 103 mmol/L (98-107); Glucose 108 mg/dL (83-110); Potassium 4.8 mmol/L (3.5-5.1); Sodium 139 mmol/L (136-145)
[2021-05-09] MEDS: Cholecalciferol 1,000 UNITS (25 MCG) TAB PO SCH (08:24)
[2021-05-09] MEDS: Mometasone/Formoterol 200/5 60 PUFF INH SCH ×2 (08:24→20:32)
[2021-05-09] MEDS: Aspirin 81 mg Enteric Coated Tablet PO SCH ×2 (08:24→20:33)
[2021-05-09] MEDS: Gabapentin 100 MG CAP PO SCH (08:25)
[2021-05-09] MEDS: Cyanocobalamin (Vitamin B-12) 1,000 MCG TAB PO SCH (08:25)
[2021-05-09] MEDS: Ascorbic Acid 500 mg Chewable Tablet PO SCH ×2 (08:25→20:33)
[2021-05-09] MEDS: Ferrous Sulfate 325 MG TAB PO SCH ×2 (08:26→20:33)
[2021-05-09] MEDS: Losartan Potassium 50 MG TAB PO SCH (08:26)
[2021-05-09] MEDS: Dicyclomine 10 MG CAP PO SCH (08:27)
[2021-05-09] MEDS: Senokot S 8.6-50 MG TAB PO PRN (08:33)
[2021-05-09] MEDS: Acetaminophen 500 MG TAB PO PRN ×2 (11:55→18:00)
[2021-05-09] MEDS: Polyethylene Glycol 3350 17 GM Packet PO PRN (14:07)
[2021-05-09] MEDS: Amlodipine 5 MG TAB PO SCH (20:33)
[2021-05-09] MEDS: Citalopram 20 MG TAB PO SCH (20:33)
[2021-05-10] MEDS: Levothyroxine Sodium 125 MCG TAB PO SCH (05:59)
[2021-05-10] MEDS: Aspirin 81 mg Enteric Coated Tablet PO SCH ×2 (07:47→21:02)
[2021-05-10] MEDS: Cholecalciferol 1,000 UNITS (25 MCG) TAB PO SCH (07:48)
[2021-05-10] MEDS: Ascorbic Acid 500 mg Chewable Tablet PO SCH ×2 (07:48→21:02)
[2021-05-10] MEDS: Losartan Potassium 50 MG TAB PO SCH (07:48)
[2021-05-10] MEDS: Gabapentin 100 MG CAP PO SCH (07:48)
[2021-05-10] MEDS: HYDROcodone/Acetaminophen 5/325 mg Tablet PO PRN ×2 (07:49→11:52)
[2021-05-10] MEDS: Dicyclomine 10 MG CAP PO SCH (07:50)
[2021-05-10] MEDS: Ferrous Sulfate 325 MG TAB PO SCH ×2 (07:51→21:02)
[2021-05-10] MEDS: Mometasone/Formoterol 200/5 60 PUFF INH SCH ×2 (07:51→21:03)
[2021-05-10] MEDS: Cyanocobalamin (Vitamin B-12) 1,000 MCG TAB PO SCH (07:51)
[2021-05-10] MEDS: Bisacodyl 5 MG TAB PO PRN (07:55)
[2021-05-10] MEDS: Ondansetron ODT 4 MG TAB PO PRN (11:54)
[2021-05-10] MEDS: Amlodipine 5 MG TAB PO SCH (21:01)
[2021-05-10] MEDS: Citalopram 20 MG TAB PO SCH (21:02)
[2021-05-11] MEDS: HYDROcodone/Acetaminophen 5/325 mg Tablet PO PRN (00:58)
[2021-05-11] MEDS: Levothyroxine Sodium 125 MCG TAB PO SCH (06:38)
[2021-05-11] MEDS: Mometasone/Formoterol 200/5 60 PUFF INH SCH ×2 (07:48→20:52)
[2021-05-11] MEDS: Losartan Potassium 50 MG TAB PO SCH (07:49)
[2021-05-11] MEDS: Dicyclomine 10 MG CAP PO SCH (07:49)
[2021-05-11] MEDS: Cholecalciferol 1,000 UNITS (25 MCG) TAB PO SCH (07:49)
[2021-05-11] MEDS: Aspirin 81 mg Enteric Coated Tablet PO SCH ×2 (07:49→20:52)
[2021-05-11] MEDS: Ferrous Sulfate 325 MG TAB PO SCH ×2 (07:49→20:52)
[2021-05-11] MEDS: Cyanocobalamin (Vitamin B-12) 1,000 MCG TAB PO SCH (07:50)
[2021-05-11] MEDS: Gabapentin 100 MG CAP PO SCH (07:50)
[2021-05-11] MEDS: Ascorbic Acid 500 mg Chewable Tablet PO SCH ×2 (07:50→20:52)
[2021-05-11] MEDS: Ondansetron ODT 4 MG TAB PO PRN (10:36)
[2021-05-11 14:41] LABS: SARS-CoV-2 PCR by NAA Not Detected (NotDetected)
[2021-05-11 17:24] LABS: Bilirubin Negative (Negative); Blood, Urine Negative (Negative); Glucose, Urine (Dipstick) Negative (Negative); Ketone, Urine Negative (Negative); Leukocyte Small (Negative); Nitrite Negative (Negative); Protein, Urine (Dipstick) Negative (Neg-Trace); Specific Gravity, Urine 1.015 (1.005-1.030); Urobilinogen 0.2 mg/dL (Less than 2); pH, Urine 5.5 (5.0-9.0)
[2021-05-11 17:47] LABS: Clarity SL HAZY (Clear)
[2021-05-11 19:20] LABS: Renal Epithelial 0-3 HPF (None Seen); Squamous Epithelial 0-3 HPF (0-3)
[2021-05-11] MEDS: Citalopram 20 MG TAB PO SCH (20:53)
[2021-05-11] MEDS: Amlodipine 5 MG TAB PO SCH (20:53)
[2021-05-11] MEDS: Acetaminophen 500 MG TAB PO PRN (20:53)
[2021-05-12] MEDS: Levothyroxine Sodium 125 MCG TAB PO SCH (06:22)
[2021-05-12 08:27] LABS: #Basophils 0.1 thou/uL (0.0-0.2); #Eosinphils 0.1 thou/uL (0.0-0.7); #Lymphocytes 1.4 thou/uL (1.20-3.40); #Monocytes 0.3 thou/uL (0.11-0.59); #Neutrophils 5.8 thou/uL (1.40-6.50); %Basophils 0.8 % (0.0-1.0); %Eosinophils 1.9 % (0.0-10.0); %Lymphocytes 18.1 % (21.0-51.0); %Monocytes 4.3 % (0.0-10.0); %Neutrophils 74.9 % (42.0-75.0); Hemoglobin 7.9 g/dL (12.0-16.0); Mean Corpuscular HGB CONC 30.6 g/dL (32.0-36.0); Mean Corpuscular Hemoglobin 31.4 pg (27.0-31.0); Mean Platelet Volume 7.6 fL (7.4-10.4); Platelet Count 409 thou/uL (130-400); RBC Distribution Width 14.2 % (11.5-14.5); Red Blood Cell (RBC) Count 2.53 mill/uL (4.20-5.40); White Blood Cell (WBC) Count 7.7 thou/uL (4.8-10.8)
[2021-05-12 08:44] LABS: Anion Gap 15 mmol/L (10-20); BUN (Urea Nitrogen) 13 mg/dL (9.8-20.1); Calc. Creatinine Clearance 82 mL/min (70-130); Calcium 9.7 mg/dL (7.8-10.44); Carbon Dioxide 26 mmol/L (23-31); Chloride 97 mmol/L (98-107); Glucose 163 mg/dL (83-110); Potassium 4.5 mmol/L (3.5-5.1); Sodium 133 mmol/L (136-145)
[2021-05-12] MEDS: Cholecalciferol 1,000 UNITS (25 MCG) TAB PO SCH (10:15)
[2021-05-12] MEDS: Mometasone/Formoterol 200/5 60 PUFF INH SCH ×2 (10:15→20:53)
[2021-05-12] MEDS: Acetaminophen 500 MG TAB PO PRN (10:15)
[2021-05-12] MEDS: Losartan Potassium 50 MG TAB PO SCH (10:16)
[2021-05-12] MEDS: Ferrous Sulfate 325 MG TAB PO SCH ×2 (10:16→20:54)
[2021-05-12] MEDS: Cyanocobalamin (Vitamin B-12) 1,000 MCG TAB PO SCH (10:16)
[2021-05-12] MEDS: Aspirin 81 mg Enteric Coated Tablet PO SCH ×2 (10:16→20:54)
[2021-05-12] MEDS: Dicyclomine 10 MG CAP PO SCH (10:16)
[2021-05-12] MEDS: Gabapentin 100 MG CAP PO SCH (10:16)
[2021-05-12] MEDS: Ascorbic Acid 500 mg Chewable Tablet PO SCH ×2 (10:16→20:53)
[2021-05-12] MEDS: Ondansetron ODT 4 MG TAB PO PRN (11:43)
[2021-05-12] MEDS: HYDROcodone/Acetaminophen 5/325 mg Tablet PO PRN (12:01)
[2021-05-12] MEDS ORDERED: Acetaminophen 500 MG TAB PO SCH (18:00)
[2021-05-12] MEDS: Acetaminophen 325 MG TAB PO SCH (19:27)
[2021-05-12] MEDS: Amlodipine 5 MG TAB PO SCH (20:53)
[2021-05-12] MEDS: Citalopram 20 MG TAB PO SCH (20:54)
[2021-05-13] MEDS: Acetaminophen 325 MG TAB PO SCH ×4 (00:40→18:27)
[2021-05-13] MEDS: Levothyroxine Sodium 125 MCG TAB PO SCH (06:27)
[2021-05-13] MEDS: Mometasone/Formoterol 200/5 60 PUFF INH SCH ×2 (08:24→20:16)
[2021-05-13] MEDS: Ascorbic Acid 500 mg Chewable Tablet PO SCH ×2 (08:25→20:15)
[2021-05-13] MEDS: Cholecalciferol 1,000 UNITS (25 MCG) TAB PO SCH (08:25)
[2021-05-13] MEDS: Ferrous Sulfate 325 MG TAB PO SCH ×2 (08:25→20:15)
[2021-05-13] MEDS: Cyanocobalamin (Vitamin B-12) 1,000 MCG TAB PO SCH (08:25)
[2021-05-13] MEDS: Gabapentin 100 MG CAP PO SCH (08:25)
[2021-05-13] MEDS: Dicyclomine 10 MG CAP PO SCH (08:26)
[2021-05-13] MEDS: Losartan Potassium 50 MG TAB PO SCH (08:26)
[2021-05-13] MEDS: Aspirin 81 mg Enteric Coated Tablet PO SCH ×2 (08:26→20:15)
[2021-05-13] MEDS: Ondansetron ODT 4 MG TAB PO PRN (09:47)
[2021-05-13] MEDS: Citalopram 20 MG TAB PO SCH (20:15)
[2021-05-13] MEDS: Amlodipine 5 MG TAB PO SCH (20:15)
[2021-05-14] MEDS: Acetaminophen 325 MG TAB PO SCH ×4 (00:42→18:24)
[2021-05-14] MEDS: Levothyroxine Sodium 125 MCG TAB PO SCH (06:03)
[2021-05-14] MEDS: Bisacodyl 5 MG TAB PO PRN (07:10)
[2021-05-14] MEDS: Ondansetron ODT 4 MG TAB PO PRN ×2 (08:16→14:52)
[2021-05-14] MEDS: Mometasone/Formoterol 200/5 60 PUFF INH SCH ×2 (08:23→20:29)
[2021-05-14] MEDS: Cyanocobalamin (Vitamin B-12) 1,000 MCG TAB PO SCH (08:23)
[2021-05-14] MEDS: Cholecalciferol 1,000 UNITS (25 MCG) TAB PO SCH (08:23)
[2021-05-14] MEDS: Ascorbic Acid 500 mg Chewable Tablet PO SCH ×2 (08:23→20:29)
[2021-05-14] MEDS: Losartan Potassium 50 MG TAB PO SCH (08:23)
[2021-05-14] MEDS: Aspirin 81 mg Enteric Coated Tablet PO SCH ×2 (08:23→20:29)
[2021-05-14] MEDS: Gabapentin 100 MG CAP PO SCH (08:23)
[2021-05-14] MEDS: Dicyclomine 10 MG CAP PO SCH (08:23)
[2021-05-14] MEDS: Ferrous Sulfate 325 MG TAB PO SCH ×2 (08:23→20:29)
[2021-05-14] MEDS: Amlodipine 5 MG TAB PO SCH (20:29)
[2021-05-14] MEDS: Citalopram 20 MG TAB PO SCH (20:29)
[2021-05-15] MEDS: Acetaminophen 325 MG TAB PO SCH ×4 (01:25→18:22)
[2021-05-15] MEDS: Levothyroxine Sodium 125 MCG TAB PO SCH (05:00)
[2021-05-15] MEDS: Cholecalciferol 1,000 UNITS (25 MCG) TAB PO SCH (08:43)
[2021-05-15] MEDS: Ascorbic Acid 500 mg Chewable Tablet PO SCH ×2 (08:43→20:08)
[2021-05-15] MEDS: Dicyclomine 10 MG CAP PO SCH (08:43)
[2021-05-15] MEDS: Aspirin 81 mg Enteric Coated Tablet PO SCH ×2 (08:43→20:08)
[2021-05-15] MEDS: Ferrous Sulfate 325 MG TAB PO SCH ×2 (08:43→20:08)
[2021-05-15] MEDS: Losartan Potassium 50 MG TAB PO SCH (08:44)
[2021-05-15] MEDS: Mometasone/Formoterol 200/5 60 PUFF INH SCH ×2 (08:44→20:08)
[2021-05-15] MEDS: Gabapentin 100 MG CAP PO SCH (08:44)
[2021-05-15] MEDS: Cyanocobalamin (Vitamin B-12) 1,000 MCG TAB PO SCH (08:44)
[2021-05-15] MEDS: Ondansetron ODT 4 MG TAB PO PRN ×2 (10:19→16:43)
[2021-05-15] MEDS: HYDROcodone/Acetaminophen 5/325 mg Tablet PO PRN (16:42)
[2021-05-15] MEDS: Citalopram 20 MG TAB PO SCH (20:08)
[2021-05-15] MEDS: Amlodipine 5 MG TAB PO SCH (20:08)
[2021-05-16] MEDS: Acetaminophen 325 MG TAB PO SCH ×4 (00:01→18:13)
[2021-05-16] MEDS: Levothyroxine Sodium 125 MCG TAB PO SCH (05:15)
[2021-05-16] MEDS: Polyethylene Glycol 3350 17 GM Packet PO PRN (09:04)
[2021-05-16] MEDS: Ondansetron ODT 4 MG TAB PO PRN ×2 (09:04→14:36)
[2021-05-16] MEDS: Cholecalciferol 1,000 UNITS (25 MCG) TAB PO SCH (09:05)
[2021-05-16] MEDS: Losartan Potassium 50 MG TAB PO SCH (09:05)
[2021-05-16] MEDS: Dicyclomine 10 MG CAP PO SCH (09:05)
[2021-05-16] MEDS: Ascorbic Acid 500 mg Chewable Tablet PO SCH ×2 (09:06→20:01)
[2021-05-16] MEDS: Ferrous Sulfate 325 MG TAB PO SCH ×2 (09:06→20:01)
[2021-05-16] MEDS: Cyanocobalamin (Vitamin B-12) 1,000 MCG TAB PO SCH (09:07)
[2021-05-16] MEDS: Gabapentin 100 MG CAP PO SCH (09:07)
[2021-05-16] MEDS: Aspirin 81 mg Enteric Coated Tablet PO SCH ×2 (09:08→20:01)
[2021-05-16] MEDS: Mometasone/Formoterol 200/5 60 PUFF INH SCH ×2 (09:10→20:01)
[2021-05-16] MEDS: HYDROcodone/Acetaminophen 5/325 mg Tablet PO PRN ×2 (14:32→21:24)
[2021-05-16] MEDS: Citalopram 20 MG TAB PO SCH (20:01)
[2021-05-16] MEDS: Amlodipine 5 MG TAB PO SCH (20:01)
[2021-05-17] MEDS: Acetaminophen 325 MG TAB PO SCH ×4 (00:34→17:19)
[2021-05-17] MEDS: Levothyroxine Sodium 125 MCG TAB PO SCH (05:21)
[2021-05-17] MEDS: Ferrous Sulfate 325 MG TAB PO SCH ×2 (08:38→21:11)
[2021-05-17] MEDS: Losartan Potassium 50 MG TAB PO SCH (08:38)
[2021-05-17] MEDS: Ascorbic Acid 500 mg Chewable Tablet PO SCH ×2 (08:38→21:11)
[2021-05-17] MEDS: Dicyclomine 10 MG CAP PO SCH (08:39)
[2021-05-17] MEDS: Gabapentin 100 MG CAP PO SCH (08:39)
[2021-05-17] MEDS: Cyanocobalamin (Vitamin B-12) 1,000 MCG TAB PO SCH (08:39)
[2021-05-17] MEDS: Mometasone/Formoterol 200/5 60 PUFF INH SCH ×2 (08:39→21:17)
[2021-05-17] MEDS: Aspirin 81 mg Enteric Coated Tablet PO SCH ×2 (08:39→21:11)
[2021-05-17] MEDS: Cholecalciferol 1,000 UNITS (25 MCG) TAB PO SCH (08:39)
[2021-05-17] MEDS: HYDROcodone/Acetaminophen 5/325 mg Tablet PO PRN ×3 (08:42→21:16)
[2021-05-17] MEDS: Ondansetron ODT 4 MG TAB PO PRN (16:21)
[2021-05-17] MEDS: Amlodipine 5 MG TAB PO SCH (21:11)
[2021-05-17] MEDS: Citalopram 20 MG TAB PO SCH (21:11)
[2021-05-18] MEDS: Acetaminophen 325 MG TAB PO SCH ×5 (00:29→23:12)
[2021-05-18] MEDS: Levothyroxine Sodium 125 MCG TAB PO SCH (06:38)
[2021-05-18 07:26] LABS: Anion Gap 12 mmol/L (10-20); BUN (Urea Nitrogen) 11 mg/dL (9.8-20.1); Calc. Creatinine Clearance 74 mL/min (70-130); Calcium 10.2 mg/dL (7.8-10.44); Carbon Dioxide 27 mmol/L (23-31); Chloride 101 mmol/L (98-107); Glucose 106 mg/dL (83-110); Potassium 4.9 mmol/L (3.5-5.1); Sodium 135 mmol/L (136-145)
[2021-05-18 07:28] LABS: #Basophils 0.1 thou/uL (0.0-0.2); #Eosinphils 0.2 thou/uL (0.0-0.7); #Lymphocytes 2.1 thou/uL (1.20-3.40); #Monocytes 0.5 thou/uL (0.11-0.59); #Neutrophils 5.9 thou/uL (1.40-6.50); %Basophils 1.1 % (0.0-1.0); %Eosinophils 1.9 % (0.0-10.0); %Lymphocytes 23.6 % (21.0-51.0); %Monocytes 6.1 % (0.0-10.0); %Neutrophils 67.4 % (42.0-75.0); Hemoglobin 9.2 g/dL (12.0-16.0); Mean Corpuscular HGB CONC 29.9 g/dL (32.0-36.0); Mean Corpuscular Hemoglobin 31.8 pg (27.0-31.0); Platelet Count 488 thou/uL (130-400); RBC Distribution Width 16.1 % (11.5-14.5); Red Blood Cell (RBC) Count 2.89 mill/uL (4.20-5.40); White Blood Cell (WBC) Count 8.8 thou/uL (4.8-10.8)
[2021-05-18] MEDS: Losartan Potassium 50 MG TAB PO SCH (08:40)
[2021-05-18] MEDS: Mometasone/Formoterol 200/5 60 PUFF INH SCH ×2 (08:40→20:25)
[2021-05-18] MEDS: Dicyclomine 10 MG CAP PO SCH (08:41)
[2021-05-18] MEDS: Aspirin 81 mg Enteric Coated Tablet PO SCH ×2 (08:41→20:25)
[2021-05-18] MEDS: Ascorbic Acid 500 mg Chewable Tablet PO SCH ×2 (08:41→20:25)
[2021-05-18] MEDS: Ferrous Sulfate 325 MG TAB PO SCH ×2 (08:41→20:25)
[2021-05-18] MEDS: Cyanocobalamin (Vitamin B-12) 1,000 MCG TAB PO SCH (08:41)
[2021-05-18] MEDS: Gabapentin 100 MG CAP PO SCH (08:41)
[2021-05-18] MEDS: Cholecalciferol 1,000 UNITS (25 MCG) TAB PO SCH (08:41)
[2021-05-18] MEDS: HYDROcodone/Acetaminophen 5/325 mg Tablet PO PRN (10:57)
[2021-05-18] MEDS: Amlodipine 5 MG TAB PO SCH (20:25)
[2021-05-18] MEDS: Citalopram 20 MG TAB PO SCH (20:25)
[2021-05-19] MEDS: Acetaminophen 325 MG TAB PO SCH ×4 (05:23→23:25)
[2021-05-19] MEDS: Levothyroxine Sodium 125 MCG TAB PO SCH (05:23)
[2021-05-19] MEDS: HYDROcodone/Acetaminophen 5/325 mg Tablet PO PRN (08:52)
[2021-05-19] MEDS: Mometasone/Formoterol 200/5 60 PUFF INH SCH ×2 (08:52→20:30)
[2021-05-19] MEDS: Losartan Potassium 50 MG TAB PO SCH (08:54)
[2021-05-19] MEDS: Dicyclomine 10 MG CAP PO SCH (08:54)
[2021-05-19] MEDS: Gabapentin 100 MG CAP PO SCH (08:54)
[2021-05-19] MEDS: Cholecalciferol 1,000 UNITS (25 MCG) TAB PO SCH (08:54)
[2021-05-19] MEDS: Ferrous Sulfate 325 MG TAB PO SCH ×2 (08:54→20:31)
[2021-05-19] MEDS: Ascorbic Acid 500 mg Chewable Tablet PO SCH ×2 (08:54→20:31)
[2021-05-19] MEDS: Cyanocobalamin (Vitamin B-12) 1,000 MCG TAB PO SCH (08:55)
[2021-05-19] MEDS: Aspirin 81 mg Enteric Coated Tablet PO SCH ×2 (08:55→20:31)
[2021-05-19 11:55] LABS: SARS-CoV-2 PCR by NAA Not Detected (NotDetected)
[2021-05-19] MEDS: Amlodipine 5 MG TAB PO SCH (20:31)
[2021-05-19] MEDS: Citalopram 20 MG TAB PO SCH (20:31)
[2021-05-20] MEDS: Levothyroxine Sodium 125 MCG TAB PO SCH (05:58)
[2021-05-20] MEDS: Acetaminophen 325 MG TAB PO SCH ×3 (05:59→18:14)
[2021-05-20] MEDS: Ascorbic Acid 500 mg Chewable Tablet PO SCH ×2 (09:18→21:23)
[2021-05-20] MEDS: Aspirin 81 mg Enteric Coated Tablet PO SCH ×2 (09:18→21:23)
[2021-05-20] MEDS: Mometasone/Formoterol 200/5 60 PUFF INH SCH ×2 (09:18→21:22)
[2021-05-20] MEDS: Cholecalciferol 1,000 UNITS (25 MCG) TAB PO SCH (09:18)
[2021-05-20] MEDS: Gabapentin 100 MG CAP PO SCH (09:18)
[2021-05-20] MEDS: Cyanocobalamin (Vitamin B-12) 1,000 MCG TAB PO SCH (09:18)
[2021-05-20] MEDS: Losartan Potassium 50 MG TAB PO SCH (09:19)
[2021-05-20] MEDS: Dicyclomine 10 MG CAP PO SCH (09:19)
[2021-05-20] MEDS: Ferrous Sulfate 325 MG TAB PO SCH ×2 (09:19→21:23)
[2021-05-20] MEDS: HYDROcodone/Acetaminophen 5/325 mg Tablet PO PRN (10:20)
[2021-05-20] MEDS: Ondansetron ODT 4 MG TAB PO PRN (17:35)
[2021-05-20] MEDS: Citalopram 20 MG TAB PO SCH (21:23)
[2021-05-20] MEDS: Amlodipine 5 MG TAB PO SCH (21:23)
[2021-05-21] MEDS: Acetaminophen 325 MG TAB PO SCH ×4 (02:20→18:19)
[2021-05-21] MEDS: Levothyroxine Sodium 125 MCG TAB PO SCH (06:11)
[2021-05-21] MEDS: Polyethylene Glycol 3350 17 GM Packet PO PRN (08:16)
[2021-05-21] MEDS: Aspirin 81 mg Enteric Coated Tablet PO SCH ×2 (08:18→21:06)
[2021-05-21] MEDS: Ascorbic Acid 500 mg Chewable Tablet PO SCH ×2 (08:18→21:04)
[2021-05-21] MEDS: Cholecalciferol 1,000 UNITS (25 MCG) TAB PO SCH (08:18)
[2021-05-21] MEDS: Cyanocobalamin (Vitamin B-12) 1,000 MCG TAB PO SCH (08:18)
[2021-05-21] MEDS: Losartan Potassium 50 MG TAB PO SCH (08:19)
[2021-05-21] MEDS: Gabapentin 100 MG CAP PO SCH (08:19)
[2021-05-21] MEDS: Dicyclomine 10 MG CAP PO SCH (08:19)
[2021-05-21] MEDS: Ferrous Sulfate 325 MG TAB PO SCH ×2 (08:19→21:06)
[2021-05-21] MEDS: Mometasone/Formoterol 200/5 60 PUFF INH SCH ×2 (08:20→21:04)
[2021-05-21] MEDS: Senokot S 8.6-50 MG TAB PO PRN (21:04)
[2021-05-21] MEDS: Amlodipine 10 MG TAB PO SCH (21:04)
[2021-05-21] MEDS: Citalopram 20 MG TAB PO SCH (21:06)
[2021-05-22] MEDS: Acetaminophen 325 MG TAB PO SCH ×4 (01:43→18:23)
[2021-05-22] MEDS: Levothyroxine Sodium 125 MCG TAB PO SCH (06:13)
[2021-05-22] MEDS: Polyethylene Glycol 3350 17 GM Packet PO PRN (07:11)
[2021-05-22] MEDS: Dicyclomine 10 MG CAP PO SCH (08:14)
[2021-05-22] MEDS: Mometasone/Formoterol 200/5 60 PUFF INH SCH ×2 (08:14→21:00)
[2021-05-22] MEDS: Ferrous Sulfate 325 MG TAB PO SCH ×2 (08:14→21:02)
[2021-05-22] MEDS: Ascorbic Acid 500 mg Chewable Tablet PO SCH ×2 (08:14→21:01)
[2021-05-22] MEDS: Losartan Potassium 50 MG TAB PO SCH (08:15)
[2021-05-22] MEDS: Cyanocobalamin (Vitamin B-12) 1,000 MCG TAB PO SCH (08:15)
[2021-05-22] MEDS: Aspirin 81 mg Enteric Coated Tablet PO SCH ×2 (08:15→21:02)
[2021-05-22] MEDS: Gabapentin 100 MG CAP PO SCH (08:15)
[2021-05-22] MEDS: Cholecalciferol 1,000 UNITS (25 MCG) TAB PO SCH (08:16)
[2021-05-22] MEDS: Citalopram 20 MG TAB PO SCH (21:02)
[2021-05-22] MEDS: Amlodipine 10 MG TAB PO SCH (21:02)
[2021-05-22] MEDS: Ondansetron ODT 4 MG TAB PO PRN (21:43)
[2021-05-23] MEDS: Acetaminophen 325 MG TAB PO SCH ×4 (00:51→18:33)
[2021-05-23] MEDS: Levothyroxine Sodium 125 MCG TAB PO SCH (06:12)
[2021-05-23 06:25] VITALS: BMI 34.7
[2021-05-23] MEDS: Losartan Potassium 50 MG TAB PO SCH (08:23)
[2021-05-23] MEDS: Gabapentin 100 MG CAP PO SCH (08:23)
[2021-05-23] MEDS: Ferrous Sulfate 325 MG TAB PO SCH ×2 (08:23→21:02)
[2021-05-23] MEDS: Aspirin 81 mg Enteric Coated Tablet PO SCH ×2 (08:23→21:02)
[2021-05-23] MEDS: Cholecalciferol 1,000 UNITS (25 MCG) TAB PO SCH (08:23)
[2021-05-23] MEDS: Cyanocobalamin (Vitamin B-12) 1,000 MCG TAB PO SCH (08:23)
[2021-05-23] MEDS: Mometasone/Formoterol 200/5 60 PUFF INH SCH ×2 (08:24→21:00)
[2021-05-23] MEDS: Dicyclomine 10 MG CAP PO SCH (08:24)
[2021-05-23] MEDS: Ascorbic Acid 500 mg Chewable Tablet PO SCH ×2 (08:24→21:01)
[2021-05-23] MEDS: Polyethylene Glycol 3350 17 GM Packet PO PRN (08:27)
[2021-05-23] MEDS: Citalopram 20 MG TAB PO SCH (21:01)
[2021-05-23] MEDS: Amlodipine 10 MG TAB PO SCH (21:01)
[2021-05-24] MEDS: Acetaminophen 325 MG TAB PO SCH ×2 (00:10→06:08)
[2021-05-24] MEDS: Levothyroxine Sodium 125 MCG TAB PO SCH (06:07)
[2021-05-24 07:40] VITALS: BP 149/73; TEMP 97.5
[2021-05-24] MEDS: Polyethylene Glycol 3350 17 GM Packet PO PRN (07:43)
[2021-05-24] MEDS: Cholecalciferol 1,000 UNITS (25 MCG) TAB PO SCH (08:09)
[2021-05-24] MEDS: Gabapentin 100 MG CAP PO SCH (08:10)
[2021-05-24] MEDS: Losartan Potassium 50 MG TAB PO SCH (08:11)
[2021-05-24] MEDS: Cyanocobalamin (Vitamin B-12) 1,000 MCG TAB PO SCH (08:11)
[2021-05-24] MEDS: Ferrous Sulfate 325 MG TAB PO SCH (08:12)
[2021-05-24] MEDS: Dicyclomine 10 MG CAP PO SCH (08:12)
[2021-05-24] MEDS: Mometasone/Formoterol 200/5 60 PUFF INH SCH (08:12)
[2021-05-24] MEDS: Aspirin 81 mg Enteric Coated Tablet PO SCH (08:12)
[2021-05-24] MEDS: Ascorbic Acid 500 mg Chewable Tablet PO SCH (08:12)
[2021-05-24] MEDS: HYDROcodone/Acetaminophen 5/325 mg Tablet PO PRN (10:05)
== END 2021-05-24 13:15 | disposition home health service (06) | DRG 560 ==
LOC: NAV ACUTE 15:07
PROVIDERS: ADMIT Family Medicine; ATTEND Family Medicine
DX: S72.8X1D Other fracture of right femur, subsequent encounter for closed fracture with routine healing (principal); E87.1 Hypo-osmolality and hyponatremia; I25.10 Atherosclerotic heart disease of native coronary artery without angina pectoris; I10 Essential (primary) hypertension; J44.9 Chronic obstructive pulmonary disease, unspecified; W19.XXXD Unspecified fall, subsequent encounter; I35.0 Nonrheumatic aortic (valve) stenosis; Z96.652 Presence of left artificial knee joint; E03.9 Hypothyroidism, unspecified; K21.9 Gastro-esophageal reflux disease without esophagitis; J30.9 Allergic rhinitis, unspecified; E66.9 Obesity, unspecified; Z20.822 Contact with and (suspected) exposure to COVID-19; I73.9 Peripheral vascular disease, unspecified; E78.00 Pure hypercholesterolemia, unspecified; Z68.34 Body mass index [BMI] 34.0-34.9, adult; Z95.5 Presence of coronary angioplasty implant and graft; Z88.8 Allergy status to other drugs, medicaments and biological substances
CPT/HCPCS: 36415; 80048; 81001; 85025; 87086; 94664; Q0162; U0003; U0005